=== PATIENT | male | born 1985 | race Asian ===

== ENCOUNTER 2020-04-21 06:44 | Emergency (ER) | payer BC, OTHER ==
[~2020-04-21] VITALS: Ht 172.7 cm; Wt 88.5 kg
[2020-04-21 06:44] VITALS: BP 151/90
== END 2020-04-21 07:25 | disposition home or self-care (01) ==
LOC: ER 06:44
DX: Z03.818 Encounter for observation for suspected exposure to other biological agents ruled out (principal)
CPT/HCPCS: 99283; U0003

== ENCOUNTER 2020-05-19 03:52 | Emergency (ER) | payer OTHER ==
[~2020-05-19] VITALS: Ht 172.7 cm; Wt 88.5 kg
[2020-05-19 03:55] VITALS: BP 129/78
--- NOTE | 2020-05-20 03:31 | NUR ---
REC'D CALL BY PAT FROM LAB, NEG COVID RESULTS. AWARE
== END 2020-05-19 05:56 | disposition home or self-care (01) ==
LOC: ER 03:52
DX: Z03.818 Encounter for observation for suspected exposure to other biological agents ruled out (principal)
CPT/HCPCS: 99283; C9803; U0003

== ENCOUNTER 2020-06-03 01:46 | Emergency (ER) | payer OTHER ==
[~2020-06-03] VITALS: Ht 172.7 cm; Wt 88.5 kg
[2020-06-03 01:46] VITALS: BP 127/74
--- NOTE | 2020-06-03 02:12 | NUR ---
COVID TEST SENT TO LAB
== END 2020-06-03 02:21 | disposition home or self-care (01) ==
LOC: ER 01:46
DX: Z11.59 Encounter for screening for other viral diseases (principal)
CPT/HCPCS: 99283; C9803; U0003

== ENCOUNTER 2020-07-05 01:01 | Emergency (ER) | payer OTHER ==
[~2020-07-05] VITALS: Ht 172.7 cm; Wt 88.5 kg
[2020-07-05 01:01] VITALS: BP 126/61
--- NOTE | 2020-07-05 01:38 | NUR ---
COVID SWAB DONE AND SENT TO LAB.
== END 2020-07-05 01:37 | disposition home or self-care (01) ==
LOC: ER 01:02
DX: Z11.59 Encounter for screening for other viral diseases (principal)
CPT/HCPCS: 99283; C9803; U0003

== ENCOUNTER 2020-07-12 00:34 | Emergency (ER) | payer OTHER ==
[~2020-07-12] VITALS: Ht 172.7 cm; Wt 88.5 kg
[2020-07-12 00:36] VITALS: BP 141/87
--- NOTE | 2020-07-12 01:03 | NUR ---
COVID TEST SENT TO LAB
== END 2020-07-12 01:04 | disposition home or self-care (01) ==
LOC: ER 00:34
DX: Z20.828 Contact with and (suspected) exposure to other viral communicable diseases (principal)
CPT/HCPCS: 99283; C9803; U0003

== ENCOUNTER 2020-07-21 01:33 | Emergency (ER) | payer OTHER ==
[~2020-07-21] VITALS: Ht 172.7 cm; Wt 88.5 kg
[2020-07-21 01:35] VITALS: BP 135/68
== END 2020-07-21 01:57 | disposition home or self-care (01) ==
LOC: ER 01:33
DX: Z20.828 Contact with and (suspected) exposure to other viral communicable diseases (principal)
CPT/HCPCS: 99283; C9803; U0003

== ENCOUNTER 2020-07-28 04:00 | Emergency (ER) | payer OTHER ==
[~2020-07-28] VITALS: Ht 172.7 cm; Wt 88.5 kg
[2020-07-28 04:00] VITALS: BP 132/61
--- NOTE | 2020-07-28 04:20 | NUR ---
COVID SWAB DONE AND SENT TO LAB
== END 2020-07-28 04:21 | disposition home or self-care (01) ==
LOC: ER 04:01
DX: Z20.828 Contact with and (suspected) exposure to other viral communicable diseases (principal); R03.0 Elevated blood-pressure reading, without diagnosis of hypertension
CPT/HCPCS: 99283; C9803; U0003

== ENCOUNTER 2020-08-04 03:42 | Emergency (ER) | payer OTHER ==
[~2020-08-04] VITALS: Ht 172.7 cm; Wt 88.5 kg
[2020-08-04 03:45] VITALS: BP 128/79
== END 2020-08-04 03:56 | disposition home or self-care (01) ==
LOC: ER 03:46
DX: Z20.828 Contact with and (suspected) exposure to other viral communicable diseases (principal)
CPT/HCPCS: 99283; C9803; U0003

== ENCOUNTER 2020-08-11 03:53 | Emergency (ER) | payer OTHER ==
[~2020-08-11] VITALS: Ht 172.7 cm; Wt 88.5 kg
[2020-08-11 03:54] VITALS: BP 125/62
--- NOTE | 2020-08-12 09:34 | NUR ---
COVID RESULT: NEGATIVE
== END 2020-08-11 05:13 | disposition home or self-care (01) ==
LOC: ER 03:53
DX: Z20.828 Contact with and (suspected) exposure to other viral communicable diseases (principal)
CPT/HCPCS: 99283; C9803; U0003

== ENCOUNTER 2020-08-23 00:22 | Emergency (ER) | payer OTHER | END 2020-08-23 00:46 | disposition home or self-care (01) | DX: Z20.828 Contact with and (suspected) exposure to other viral communicable diseases (principal) | CPT/HCPCS: 99283; C9803; U0003 ==

== ENCOUNTER 2020-09-01 01:09 | Emergency (ER) | payer OTHER ==
[~2020-09-01] VITALS: Ht 175.3 cm; Wt 86.2 kg
[2020-09-01 01:10] VITALS: BP 137/62
== END 2020-09-01 01:19 | disposition home or self-care (01) ==
LOC: ER 01:09
DX: Z20.828 Contact with and (suspected) exposure to other viral communicable diseases (principal)
CPT/HCPCS: 99283; C9803; U0003

== ENCOUNTER 2020-10-03 01:05 | Emergency (ER) | payer OTHER ==
[~2020-10-03] VITALS: Ht 175.3 cm; Wt 86.2 kg
[2020-10-03 01:09] VITALS: BP 147/86
== END 2020-10-03 01:26 | disposition home or self-care (01) ==
LOC: ER 01:06
DX: Z20.828 Contact with and (suspected) exposure to other viral communicable diseases (principal)
CPT/HCPCS: 99283; C9803; U0003

== ENCOUNTER 2020-10-10 22:35 | Emergency (ER) | payer OTHER ==
[~2020-10-10] VITALS: Ht 175.3 cm; Wt 86.2 kg
[2020-10-10 22:36] VITALS: BP 118/79
== END 2020-10-10 23:06 | disposition home or self-care (01) ==
LOC: ER 22:41
DX: Z20.828 Contact with and (suspected) exposure to other viral communicable diseases (principal)
CPT/HCPCS: 99283; C9803; U0003

== ENCOUNTER 2020-10-17 03:52 | Emergency (ER) | payer OTHER ==
[~2020-10-17] VITALS: Ht 175.3 cm; Wt 86.2 kg
[2020-10-17 03:59] VITALS: BP 119/68
== END 2020-10-17 04:11 | disposition home or self-care (01) ==
LOC: ER 03:53
DX: Z20.828 Contact with and (suspected) exposure to other viral communicable diseases (principal)
CPT/HCPCS: 99283; C9803; U0003

== ENCOUNTER 2020-10-25 01:57 | Emergency (ER) | payer OTHER ==
[~2020-10-25] VITALS: Ht 175.3 cm; Wt 86.2 kg
[2020-10-25 01:57] VITALS: BP 132/68
== END 2020-10-25 02:28 | disposition home or self-care (01) ==
LOC: ER 01:58
DX: Z20.828 Contact with and (suspected) exposure to other viral communicable diseases (principal)
CPT/HCPCS: 99283; C9803; U0003

== ENCOUNTER 2020-11-01 00:20 | Emergency (ER) | payer OTHER ==
[~2020-11-01] VITALS: Ht 170.2 cm; Wt 86.2 kg
[2020-11-01 00:22] VITALS: BP 135/66
== END 2020-11-01 00:44 | disposition home or self-care (01) ==
LOC: ER 00:21
DX: Z20.828 Contact with and (suspected) exposure to other viral communicable diseases (principal)
CPT/HCPCS: 99283; C9803; U0003

== ENCOUNTER 2020-11-08 01:01 | Emergency (ER) | payer OTHER ==
[~2020-11-08] VITALS: Ht 170.2 cm; Wt 86.2 kg
[2020-11-08 01:45] VITALS: BP 129/76
== END 2020-11-08 01:50 | disposition home or self-care (01) ==
LOC: ER 01:02
DX: Z20.828 Contact with and (suspected) exposure to other viral communicable diseases (principal)
CPT/HCPCS: 99283; C9803; U0003

== ENCOUNTER 2020-11-15 04:05 | Emergency (ER) | payer OTHER ==
[~2020-11-15] VITALS: Ht 172.7 cm; Wt 86.2 kg
[2020-11-15 04:11] VITALS: BP 128/79
--- NOTE | 2020-11-15 22:39 | NUR ---
LAB CALLED REGARDING NEGATIVE COVID RESULT
== END 2020-11-15 04:18 | disposition home or self-care (01) ==
LOC: ER 04:09
DX: Z20.828 Contact with and (suspected) exposure to other viral communicable diseases (principal)
CPT/HCPCS: 99283; C9803; U0003

== ENCOUNTER 2020-11-21 01:23 | Emergency (ER) | payer OTHER ==
[~2020-11-21] VITALS: Ht 172.7 cm; Wt 86.2 kg
[2020-11-21 01:28] VITALS: BP 134/62
--- NOTE | 2020-11-21 01:57 | NUR ---
COVID SWAB SAMPLE COLLECTED AND SENT TO THE LAB.
== END 2020-11-21 02:00 | disposition home or self-care (01) ==
LOC: ER 01:27
DX: Z20.828 Contact with and (suspected) exposure to other viral communicable diseases (principal)
CPT/HCPCS: 99283; C9803; U0003

== ENCOUNTER 2020-11-24 02:32 | Emergency (ER) | payer OTHER ==
[~2020-11-24] VITALS: Ht 172.7 cm; Wt 86.2 kg
[2020-11-24 02:38] VITALS: BP 129/84
== END 2020-11-24 02:54 | disposition home or self-care (01) ==
LOC: ER 02:32
DX: Z20.828 Contact with and (suspected) exposure to other viral communicable diseases (principal)
CPT/HCPCS: 99283; C9803; U0003

== ENCOUNTER 2020-11-28 01:35 | Emergency (ER) | payer OTHER ==
[~2020-11-28] VITALS: Ht 172.7 cm; Wt 86.2 kg
[2020-11-28 01:43] VITALS: BP 132/80
== END 2020-11-28 01:57 | disposition home or self-care (01) ==
LOC: ER 01:47
DX: Z20.828 Contact with and (suspected) exposure to other viral communicable diseases (principal)
CPT/HCPCS: 99283; C9803; U0003

== ENCOUNTER 2020-12-01 02:43 | Emergency (ER) | payer OTHER ==
[~2020-12-01] VITALS: Ht 175.3 cm; Wt 88.5 kg
[2020-12-01 02:45] VITALS: BP 133/85
== END 2020-12-01 03:07 | disposition home or self-care (01) ==
LOC: ER 02:45
DX: Z20.828 Contact with and (suspected) exposure to other viral communicable diseases (principal)
CPT/HCPCS: 99283; C9803; U0003

== ENCOUNTER 2020-12-05 05:21 | Emergency (ER) | payer OTHER ==
[~2020-12-05] VITALS: Ht 175.3 cm; Wt 88.5 kg
[2020-12-05 05:25] VITALS: BP 122/68
== END 2020-12-05 05:45 | disposition home or self-care (01) ==
LOC: ER 05:22
DX: Z20.828 Contact with and (suspected) exposure to other viral communicable diseases (principal)
CPT/HCPCS: 99283; C9803; U0003

== ENCOUNTER 2020-12-08 01:59 | Emergency (ER) | payer OTHER ==
[~2020-12-08] VITALS: Ht 172.7 cm; Wt 81.6 kg
[2020-12-08 02:00] VITALS: BP 125/61
== END 2020-12-08 02:23 | disposition home or self-care (01) ==
LOC: ER 01:59
DX: Z20.822 Contact with and (suspected) exposure to COVID-19 (principal)
CPT/HCPCS: 99283; C9803; U0003

== ENCOUNTER 2020-12-12 03:13 | Emergency (ER) | payer OTHER ==
[~2020-12-12] VITALS: Ht 167.6 cm; Wt 80.7 kg
[2020-12-12 03:18] VITALS: BP 131/84
== END 2020-12-12 03:37 | disposition home or self-care (01) ==
LOC: ER 03:20
DX: Z20.822 Contact with and (suspected) exposure to COVID-19 (principal)
CPT/HCPCS: 99283; C9803; U0003

== ENCOUNTER 2020-12-15 01:57 | Emergency (ER) | payer OTHER ==
[~2020-12-15] VITALS: Ht 167.6 cm; Wt 80.7 kg
[2020-12-15 01:58] VITALS: BP 119/86
== END 2020-12-15 02:17 | disposition home or self-care (01) ==
LOC: ER 01:57
DX: Z20.822 Contact with and (suspected) exposure to COVID-19 (principal)
CPT/HCPCS: 99283; C9803; U0003

== ENCOUNTER 2020-12-19 00:54 | Emergency (ER) | payer OTHER ==
[~2020-12-19] VITALS: Ht 167.6 cm; Wt 78.5 kg
[2020-12-19 01:03] VITALS: BP 121/72
== END 2020-12-19 01:31 | disposition home or self-care (01) ==
LOC: ER 01:04
DX: Z20.822 Contact with and (suspected) exposure to COVID-19 (principal)
CPT/HCPCS: 99283; C9803; U0003

== ENCOUNTER 2020-12-22 02:24 | Emergency (ER) | payer OTHER ==
[~2020-12-22] VITALS: Ht 172.7 cm; Wt 90.7 kg
[2020-12-22 02:34] VITALS: BP 132/78
--- NOTE | 2020-12-22 02:41 | NUR ---
covid swab sent to lab
== END 2020-12-22 02:42 | disposition home or self-care (01) ==
LOC: ER 02:24
DX: Z20.822 Contact with and (suspected) exposure to COVID-19 (principal)
CPT/HCPCS: 99283; C9803; U0003

== ENCOUNTER 2020-12-26 01:06 | Emergency (ER) | payer OTHER ==
[~2020-12-26] VITALS: Ht 172.7 cm; Wt 90.7 kg
[2020-12-26 01:09] VITALS: BP 128/61
== END 2020-12-26 01:51 | disposition home or self-care (01) ==
LOC: ER 01:11
DX: Z20.822 Contact with and (suspected) exposure to COVID-19 (principal)
CPT/HCPCS: 99283; C9803; U0003

== ENCOUNTER 2020-12-29 02:26 | Emergency (ER) | payer OTHER ==
[~2020-12-29] VITALS: Ht 172.7 cm; Wt 90.7 kg
[2020-12-29 02:27] VITALS: BP 122/64
== END 2020-12-29 02:52 | disposition home or self-care (01) ==
LOC: ER 02:28
DX: Z20.822 Contact with and (suspected) exposure to COVID-19 (principal)
CPT/HCPCS: 99283; C9803; U0003

== ENCOUNTER 2021-01-02 02:44 | Emergency (ER) | payer OTHER ==
[~2021-01-02] VITALS: Ht 172.7 cm; Wt 90.7 kg
[2021-01-02 02:44] VITALS: BP 118/60
== END 2021-01-02 03:12 | disposition home or self-care (01) ==
LOC: ER 02:46
DX: Z20.822 Contact with and (suspected) exposure to COVID-19 (principal)
CPT/HCPCS: 99283; C9803; U0003

== ENCOUNTER 2021-01-05 00:55 | Emergency (ER) | payer OTHER ==
[~2021-01-05] VITALS: Ht 170.2 cm; Wt 80.3 kg
[2021-01-05 01:11] VITALS: BP 125/73
== END 2021-01-05 01:33 | disposition home or self-care (01) ==
LOC: EDUNIT# 00:55 → ER 00:58
DX: Z20.822 Contact with and (suspected) exposure to COVID-19 (principal)
CPT/HCPCS: 99283; C9803; U0003

== ENCOUNTER 2021-01-10 00:37 | Emergency (ER) | payer OTHER ==
[~2021-01-10] VITALS: Ht 170.2 cm; Wt 80.3 kg
[2021-01-10 00:41] VITALS: BP 129/78
== END 2021-01-10 01:16 | disposition home or self-care (01) ==
LOC: ER 00:40
DX: Z20.822 Contact with and (suspected) exposure to COVID-19 (principal)
CPT/HCPCS: 99283; C9803; U0003

== ENCOUNTER 2021-01-12 01:45 | Emergency (ER) | payer OTHER ==
[~2021-01-12] VITALS: Ht 170.2 cm; Wt 81.6 kg
[2021-01-12 01:52] VITALS: BP 133/64
== END 2021-01-12 02:01 | disposition home or self-care (01) ==
LOC: ER 01:45
DX: Z20.822 Contact with and (suspected) exposure to COVID-19 (principal)
CPT/HCPCS: 99283; C9803; U0003

== ENCOUNTER 2021-01-19 01:56 | Emergency (ER) | payer OTHER ==
[~2021-01-19] VITALS: Ht 170.2 cm; Wt 81.6 kg
[2021-01-19 02:00] VITALS: BP 124/64
== END 2021-01-19 03:06 | disposition home or self-care (01) ==
LOC: ER 01:56
DX: Z20.822 Contact with and (suspected) exposure to COVID-19 (principal)
CPT/HCPCS: 99283; C9803; U0003

== ENCOUNTER 2021-01-23 00:37 | Emergency (ER) | payer OTHER ==
[~2021-01-23] VITALS: Ht 170.2 cm; Wt 80.3 kg
[2021-01-23 00:41] VITALS: BP 128/85
== END 2021-01-23 01:16 | disposition home or self-care (01) ==
LOC: ER 00:39
DX: Z20.822 Contact with and (suspected) exposure to COVID-19 (principal)
CPT/HCPCS: 99283; C9803; U0003

== ENCOUNTER 2021-01-31 01:05 | Emergency (ER) | payer OTHER ==
[~2021-01-31] VITALS: Ht 170.2 cm; Wt 79.4 kg
[2021-01-31 01:16] VITALS: BP 124/78
== END 2021-01-31 02:04 | disposition home or self-care (01) ==
LOC: ER 01:14
DX: Z13.89 Encounter for screening for other disorder (principal); Z20.822 Contact with and (suspected) exposure to COVID-19
CPT/HCPCS: 99283; C9803; U0003

== ENCOUNTER 2021-02-07 01:15 | Emergency (ER) | payer OTHER ==
[~2021-02-07] VITALS: Ht 172.7 cm; Wt 79.4 kg
[2021-02-07 01:20] VITALS: BP 132/67
== END 2021-02-07 01:57 | disposition home or self-care (01) ==
LOC: ER 01:17
DX: Z20.822 Contact with and (suspected) exposure to COVID-19 (principal)
CPT/HCPCS: 99283; C9803; U0003

== ENCOUNTER 2021-02-13 01:05 | Emergency (ER) | payer OTHER ==
[~2021-02-13] VITALS: Ht 172.7 cm; Wt 79.4 kg
[2021-02-13 01:07] VITALS: BP 124/68
== END 2021-02-13 03:37 | disposition home or self-care (01) ==
LOC: ER 01:10
DX: Z20.822 Contact with and (suspected) exposure to COVID-19 (principal)
CPT/HCPCS: 99283; C9803; U0003

== ENCOUNTER 2021-02-19 23:22 | Emergency (ER) | payer OTHER ==
[~2021-02-19] VITALS: Ht 172.7 cm; Wt 79.4 kg
[2021-02-19 23:23] VITALS: BP 129/73
== END 2021-02-19 23:50 | disposition home or self-care (01) ==
LOC: ER 23:23
DX: Z20.822 Contact with and (suspected) exposure to COVID-19 (principal)
CPT/HCPCS: 99283; C9803; U0003

== ENCOUNTER 2021-02-27 02:28 | Emergency (ER) | payer OTHER ==
[~2021-02-27] VITALS: Ht 172.7 cm; Wt 79.4 kg
[2021-02-27 02:32] VITALS: BP 134/79
== END 2021-02-27 03:00 | disposition home or self-care (01) ==
LOC: ER 02:34
DX: Z20.822 Contact with and (suspected) exposure to COVID-19 (principal)
CPT/HCPCS: 99283; C9803; U0003

== ENCOUNTER 2021-03-06 02:48 | Emergency (ER) | payer OTHER ==
[~2021-03-06] VITALS: Ht 172.7 cm; Wt 79.4 kg
[2021-03-06 02:52] VITALS: BP 133/82
== END 2021-03-06 03:14 | disposition home or self-care (01) ==
LOC: ER 02:53
DX: Z20.822 Contact with and (suspected) exposure to COVID-19 (principal)
CPT/HCPCS: 99283; C9803; U0003

== ENCOUNTER 2021-03-13 02:35 | Emergency (ER) | payer OTHER ==
[~2021-03-13] VITALS: Ht 170.2 cm; Wt 86.2 kg
[2021-03-13 02:38] VITALS: BP 124/74
== END 2021-03-13 03:23 | disposition home or self-care (01) ==
LOC: ER 02:46
DX: Z20.822 Contact with and (suspected) exposure to COVID-19 (principal)
CPT/HCPCS: 99283; C9803; U0003

== ENCOUNTER 2021-03-21 01:03 | Emergency (ER) | payer OTHER ==
[~2021-03-21] VITALS: Ht 172.7 cm; Wt 78.0 kg
[2021-03-21 01:13] VITALS: BP 120/79
== END 2021-03-21 02:08 | disposition home or self-care (01) ==
LOC: ER 01:07
DX: Z20.822 Contact with and (suspected) exposure to COVID-19 (principal)
CPT/HCPCS: 99283; C9803; U0003

== ENCOUNTER 2021-03-28 00:58 | Emergency (ER) | payer OTHER ==
[~2021-03-28] VITALS: Ht 172.7 cm; Wt 78.0 kg
[2021-03-28 01:00] VITALS: BP 122/76
== END 2021-03-28 01:34 | disposition home or self-care (01) ==
LOC: ER 00:59
DX: Z20.822 Contact with and (suspected) exposure to COVID-19 (principal)
CPT/HCPCS: 99283; C9803; U0003

== ENCOUNTER 2021-04-03 00:48 | Emergency (ER) | payer OTHER ==
[~2021-04-03] VITALS: Ht 172.7 cm; Wt 78.0 kg
[2021-04-03 00:48] VITALS: BP 129/65
== END 2021-04-03 02:27 | disposition home or self-care (01) ==
LOC: ER 00:53
DX: Z20.822 Contact with and (suspected) exposure to COVID-19 (principal)
CPT/HCPCS: 99283; C9803; U0003

== ENCOUNTER 2021-04-09 23:42 | Emergency (ER) | payer OTHER ==
[~2021-04-09] VITALS: Ht 172.7 cm; Wt 78.0 kg
[2021-04-09 23:45] VITALS: BP 119/68
== END 2021-04-10 00:34 | disposition home or self-care (01) ==
LOC: ER 23:46
DX: Z20.822 Contact with and (suspected) exposure to COVID-19 (principal)
CPT/HCPCS: 99283; C9803; U0003

== ENCOUNTER 2021-04-17 00:31 | Emergency (ER) | payer OTHER ==
[~2021-04-17] VITALS: Ht 172.7 cm; Wt 78.0 kg
[2021-04-17 00:31] VITALS: BP 126/75
== END 2021-04-17 01:59 | disposition home or self-care (01) ==
LOC: ER 00:36
DX: Z20.822 Contact with and (suspected) exposure to COVID-19 (principal)
CPT/HCPCS: 99283; C9803; U0003

== ENCOUNTER 2021-04-24 02:55 | Emergency (ER) | payer OTHER ==
[~2021-04-24] VITALS: Ht 172.7 cm; Wt 78.0 kg
[2021-04-24 03:02] VITALS: BP 144/88
== END 2021-04-24 03:48 | disposition home or self-care (01) ==
LOC: ER 02:55
DX: Z20.822 Contact with and (suspected) exposure to COVID-19 (principal)
CPT/HCPCS: 99283; C9803; U0003

== ENCOUNTER 2021-05-04 03:25 | Emergency (ER) | payer OTHER ==
[~2021-05-04] VITALS: Ht 172.7 cm; Wt 78.0 kg
[2021-05-04 03:30] VITALS: BP 121/66
== END 2021-05-04 05:14 | disposition home or self-care (01) ==
LOC: ER 03:25
DX: Z20.822 Contact with and (suspected) exposure to COVID-19 (principal)
CPT/HCPCS: 99283; C9803; U0003

== ENCOUNTER 2021-05-09 00:14 | Emergency (ER) | payer OTHER ==
[~2021-05-09] VITALS: Ht 172.7 cm; Wt 78.0 kg
[2021-05-09 00:17] VITALS: BP 122/63
== END 2021-05-09 00:20 | disposition home or self-care (01) ==
LOC: ER 00:15
DX: Z20.822 Contact with and (suspected) exposure to COVID-19 (principal)
CPT/HCPCS: 99283; C9803; U0003

== ENCOUNTER 2021-05-15 02:24 | Emergency (ER) | payer OTHER ==
[~2021-05-15] VITALS: Ht 172.7 cm; Wt 75.7 kg
[2021-05-15 02:34] VITALS: BP 133/67
== END 2021-05-15 03:25 | disposition home or self-care (01) ==
LOC: ER 02:31
DX: Z20.822 Contact with and (suspected) exposure to COVID-19 (principal)
CPT/HCPCS: 99283; C9803; U0003

== ENCOUNTER 2021-05-23 00:45 | Emergency (ER) | payer OTHER ==
[~2021-05-23] VITALS: Ht 175.3 cm; Wt 90.7 kg
[2021-05-23 00:52] VITALS: BP 131/88
== END 2021-05-23 01:23 | disposition home or self-care (01) ==
LOC: ER 00:47
DX: Z20.822 Contact with and (suspected) exposure to COVID-19 (principal)
CPT/HCPCS: 99283; C9803; U0003

== ENCOUNTER 2021-08-14 22:50 | Emergency (ER) | payer OTHER ==
[~2021-08-14] VITALS: Ht 175.3 cm; Wt 90.7 kg
[2021-08-14 22:50] VITALS: BP 132/74
== END 2021-08-14 23:27 | disposition home or self-care (01) ==
LOC: ER 22:51
DX: Z20.822 Contact with and (suspected) exposure to COVID-19 (principal)
CPT/HCPCS: 99283; C9803; U0003

== ENCOUNTER 2021-08-21 01:57 | Emergency (ER) | payer OTHER ==
[~2021-08-21] VITALS: Ht 175.3 cm; Wt 90.7 kg
[2021-08-21 02:04] VITALS: BP 132/88
== END 2021-08-21 02:21 | disposition home or self-care (01) ==
LOC: ER 02:02
DX: Z20.822 Contact with and (suspected) exposure to COVID-19 (principal)
CPT/HCPCS: 99283; C9803; U0003